=== PATIENT | female | born 1985 | race Two or more races ===

== ENCOUNTER 2021-03-28 14:58 | Emergency (ER) | payer BC, OTHER ==
[~2021-03-28] VITALS: Ht 160 cm; Wt 89.9 kg
--- NOTE | 2021-03-28 15:50 | NUR ---
jacqueline care of pt. pt here for c/o rapid HR x2 days. pt denies CP, denies SOB. pt reports that she is COVID+ and has a frequent non-productive cugh with sinus and chest congestion no respiratory distress. speaking full sentences. pink warm and dry pt reports that she has not recieved a COVID vaccine and that she is self-isolating at home isolation precautions in place
[2021-03-28] MEDS ORDERED: SODIUM CHLORIDE FLUSH 10ML SYR IVF ONE (16:00)
[2021-03-28] MEDS ORDERED: SODIUM CHLORIDE 0.9% 1,000ML IVBOLUS ONE (16:00)
[2021-03-28] MEDS ORDERED: IBUPROFEN 200 MG TABLET PO ONE (16:00)
[2021-03-28] MEDS ORDERED: IBUPROFEN 200 MG TABLET ONE (16:10)
--- NOTE | 2021-03-28 16:30 | NUR ---
pt resting in position of comfort. IV fluids infusing. updated on POC
--- NOTE | 2021-03-28 16:50 | NUR ---
Note undone in EDM - 03/28/21 at 1741 by TATIANNA assuemd care of pt. pt here for c/o rapid HR x2 days. pt denies CP, denies SOB. pt reports that she is COVID+ and has a frequent non-productive cugh with sinus and chest congestion no respiratory distress. speaking full sentences. pink warm and dry pt reports that she has not recieved a COVID vaccine and that she is self-isolating at home isolation precautions in place
[2021-03-28 17:00] VITALS: BP 116/79
--- NOTE | 2021-03-28 17:05 | NUR ---
pt ambulated to BR without assist
--- NOTE | 2021-03-28 17:20 | NUR ---
chart up for MD recheck
--- NOTE | 2021-03-28 18:06 | NUR ---
TASK RN: ASSUMED CARE FOR DISCHARGE ONLY. PT AMBULATORY TO DISCHARGE DESK. PIV TAKEN OUT PRIOR TO DISCHARGE.
--- NOTE | 2021-03-28 18:09 | NUR ---
this pt was D/C by another RN
== END 2021-03-28 18:08 | disposition home or self-care (01) ==
LOC: SUATTDRO 16:52 → ED 18:02
PROVIDERS: ATTEND Internal Medicine
DX: J12.9 Viral pneumonia, unspecified (principal); R00.0 Tachycardia, unspecified; R00.2 Palpitations; R07.9 Chest pain, unspecified; R19.7 Diarrhea, unspecified
CPT/HCPCS: 71045; 93005; 96360; 99283; J7030